=== PATIENT | female | born 1970 | race African-American/Black ===

== ENCOUNTER 2023-11-28 08:35 | Emergency (ER) | payer SELFPAY ==
[2023-11-28 09:01] VITALS: BP 105/69; PULSE 77; RESP 18; TEMP 98.3; BMI 34.3
== END 2023-11-28 10:46 | disposition home or self-care (01) ==
LOC: JERFT 08:35
DX: H00.021 Hordeolum internum right upper eyelid (principal); H02.841 Edema of right upper eyelid; H57.11 Ocular pain, right eye; H02.89 Other specified disorders of eyelid
CPT/HCPCS: 99283-25